=== PATIENT | female | born 1985 | race African-American/Black ===

== ENCOUNTER 2017-11-25 21:10 | Emergency (ER) | payer SELFPAY ==
[~2017-11-25] VITALS: Ht 167.6 cm; Wt 82.6 kg
[2017-11-25 21:13] VITALS: BP 134/92
[2017-11-25] MEDS ORDERED: Ketorolac 60mg Inj IM ONE (21:15)
[2017-11-25] MEDS ORDERED: IBUPROFEN600 MG ORAL (22:26)
[2017-11-25 23:10] VITALS: BP 0/0
--- NOTE | 2017-11-26 04:52 | Emergency Room Report ---
History of Present Illness General Chief Complaint: Pain Source: Patient Present Illness HPI Patient is a 32-year-old female who presented after increased right knee pain. Patient reported having increased pain to the right knee after doing exercise in the park. The patient stated that she had the difficulty with movement of the knee. She reported having increased pain. She denies any fever.The patient denies prior injuries. She denies any numbness or tingling distally Allergies: Coded Allergies: No Known Allergies (Unverified , 11/25/17) Patient History Past Medical History: see triage record Reviewed Nursing Documentation: PMH: Agreed; PSxH: Agreed Nursing Documentation-PM Past Medical History: No Stated History Review of Systems All Other Systems: negative except mentioned in HPI Physical Exam Vital Signs Date Time Temp Pulse Resp B/P (MAP) Pulse Ox O2 Delivery O2 Flow Rate FiO2 11/25/17 21:04 98.0 86 18 134/92 97 Room Air 98.1 General Appearance: normal inspection, well appearing, no apparent distress, alert, GCS 15 Head: normocephalic, atraumatic ENT: hearing grossly normal, normal voice Neck: full range of motion, supple Respiratory: no respiratory distress, speaking full sentences Cardiovascular #1: normal inspection, regular rate, rhythm Musculoskeletal: no calf tenderness, decreased range of mation, swelling Neurologic: normal inspection, alert, oriented x3, responsive, normal gait Psychiatric: mood/affect normal Skin: no rash Medical Decision Making Diagnostic Impression: Primary Impression: Right knee sprain ER Course Patient presented for knee pain. Differential diagnosis included was not limited to popliteal aneurysm, arthritis, dislocation, ligamentous injury, septic joint among others. X-ray imaging of the right knee 3 views interpreted by me showed high riding patella without evident fracture. The patient is placed in a knee immobilizer. The patient given crutches. She is advised to follow-up with orthopedics for reexamination treatment.The patient is advised to follow up with primary care doctor in 1-2 days for orthopedic referral. Patient is advised to return if any worsening condition or if any changes in status that are concerning. This report is dictated with [employer] rvda master certified rv technician software which may occasionally lead to discrepancies related to use of this software. Last Vital Signs Date Time Temp Pulse Resp B/P (MAP) Pulse Ox O2 Delivery O2 Flow Rate FiO2 11/25/17 23:10 0/0 11/25/17 22:03 98.0 11/25/17 21:13 83 18 97 Room Air Status: improved Disposition: HOME, SELF-CARE Condition: Stable Scripts Ibuprofen* (MOTRIN*) 600 Mg Tablet 600 MG ORAL Q8H PRN for For Pain, #30 TAB 0 Refills Prov: Fortino Agrawal MD 11/25/17 Patient Instructions: Knee Immobilizer, [id number], Knee Sprain Fortino Agrawal MD Nov 26, 2017 04:52
--- NOTE | 2017-11-26 11:08 | Diagnostic Imaging Report ---
Indication: Right knee pain Technique: 3 views of the right knee Comparison: None Findings: No suprapatellar effusion, fracture, dislocation, or joint space narrowing demonstrated. No radiopaque foreign body Impression: Negative
== END 2017-11-25 23:10 | disposition home or self-care (01) ==
LOC: EDBD 21:10 → EMR 21:30
DX: S83.91XA Sprain of unspecified site of right knee, initial encounter (principal); Y93.A9 Activity, other involving cardiorespiratory exercise; Y92.830 Public park as the place of occurrence of the external cause
CPT/HCPCS: 96372; 99283